=== PATIENT | female | born 1960 | race Caucasian/White ===

== ENCOUNTER 2023-01-06 10:25 | Outpatient (CLI) | payer OTHER, SELFPAY | END 2023-01-06 10:26 | disposition home or self-care (01) | LOC: NFLDREF 01-07 02:43 | PROVIDERS: PCP Internal Medicine; Referring Provider Internal Medicine; Visit Provider Internal Medicine | DX: E78.5 Hyperlipidemia, unspecified (principal); E03.9 Hypothyroidism, unspecified | CPT/HCPCS: 80053; 80061; 84443 ==

== ENCOUNTER 2023-03-17 14:55 | Outpatient (CLI) | payer OTHER, SELFPAY ==
--- NOTE | 2023-03-17 15:00 | MM_ITS ---
Patient: LEANDRA PADILLA Facility:?[facility] Patient ID:?[id number] Site Patient ID:?[id number]. Site :?[id number] Study:?XRay-Breast 2D W/CAD-04/03/2023 8:41:37 AM Ordering Physician:Pablito Jack Final Report: ----ADDENDUM---- PLEASE NOTE THAT THE CORRECT DATE OF SERVICE IS 03/17/2023. CRL:rcd BILATERAL SCREENING MAMMOGRAM WITH COMPUTER-AIDED DETECTION TECHNIQUE: CC and MLO views were obtained. These mammographic images have been obtained using full-field digital technique. These mammographic images were interpreted with the benefit of computer-aided detection. COMPARISON FILM: 09/13/18, 12/18/14, 12/17/11. FINDINGS: There are scattered areas of fibroglandular density IMPRESSION: There is no radiographic evidence for malignancy. ASSESSMENT: BI-RADS Category 1: Negative RECOMMENDATION: Routine screening mammogram in 1 year. A lay language report of this examination will be provided to the patient. Thuan Stratton M.D. Diagnostic/Nuclear Medicine Radiologist [email or web address] D& Transcribed: 2:32 p.m. AMY/Dictated by: Thuan Stratton MD @ 04/03/2023 10:19:00 AM Signed by: Thuan Stratton @ 04/03/2023 3:05:09 PM (Electronic Signature) Signed by:?Thuan Stratton MD @04/07/2023 4:17:53 PM (Electronic Signature)
== END 2023-03-17 14:56 | disposition home or self-care (01) ==
LOC: MAMMO 14:56
PROVIDERS: PCP Internal Medicine; Visit Provider Internal Medicine
DX: Z12.31 Encounter for screening mammogram for malignant neoplasm of breast (principal)
CPT/HCPCS: 77063; 77067

== ENCOUNTER 2023-09-30 10:25 | Outpatient (CLI) | payer OTHER, SELFPAY | END 2023-09-30 10:26 | disposition home or self-care (01) | LOC: NFLDREF 10:28 | PROVIDERS: PCP Internal Medicine; Visit Provider Internal Medicine | DX: E03.9 Hypothyroidism, unspecified (principal) | CPT/HCPCS: 84439; 84443 ==

== ENCOUNTER 2024-11-22 15:27 | Outpatient (CLI) | payer OTHER, SELFPAY | END 2024-11-22 15:28 | disposition home or self-care (01) | LOC: NFLDREF 15:28 | PROVIDERS: PCP Internal Medicine; Visit Provider Internal Medicine | DX: E03.9 Hypothyroidism, unspecified (principal) | CPT/HCPCS: 84443 ==

== ENCOUNTER 2025-04-21 12:49 | Outpatient (CLI) | payer OTHER, SELFPAY ==
--- NOTE | 2025-04-21 13:00 | CRLHL7_ITS ---
For Patients: As a result of the Century Cures Act, medical imaging exams and procedure reports are released immediately into your electronic medical record. You may view this report before your referring provider. If you have questions, please contact your health care provider. INDICATION: Fall. Left ankle injury. TECHNIQUE: Noncontrast CT left ankle. COMPARISON: No prior. FINDINGS: There is an acute fracture of the medial distal tibia. Fracture involves the medial tibial plafond articular surface with 1 millimeter of impaction as noted on coronal image number 19 of series 6. Fracture also extends into the base of the medial malleolus and into the anterior medial distal tibial metaphysis where it is nondisplaced. The posterior malleolus of the distal tibia is intact. 7 millimeter avulsion fracture is noted along the anterior inferior aspect of the fibular tip and lateral aspect of the talus, present along the expected course of the anterior talofibular ligament. There is soft tissue swelling and hemorrhage present laterally. There is no widening of the ankle mortise. Subtalar articulations are maintained. IMPRESSION: 1. Acute fracture of the medial distal tibia involving the medial tibial plafond articular surface where there is 1 mm of impaction, extending to the base of the medial malleolus and into the anteromedial aspect of the tibial metaphysis. 2. 7 mm acute avulsion fracture along the anterior inferior aspect of the fibular tip and lateral aspect of the talus, present along the expected course of the ATFL. 3. No widening of the ankle mortise. 4. Soft tissue swelling and hemorrhage laterally. Please note that all CT scans at this facility use dose modulation, iterative reconstruction, and/or weight-based dosing when appropriate to reduce radiation dose to as low as reasonably achievable. Dictated by Aubrey Alexander MD @ 04/24/2025 9:52:34 AM (Electronically Signed)
== END 2025-04-21 12:50 | disposition home or self-care (01) ==
LOC: CT 12:49
PROVIDERS: PCP Internal Medicine; Visit Provider Internal Medicine
DX: M25.532 Pain in left wrist (principal); W19.XXXA Unspecified fall, initial encounter
CPT/HCPCS: 73700

== ENCOUNTER 2025-08-03 14:40 | Outpatient (CLI) | payer OTHER, SELFPAY | END 2025-08-03 14:41 | disposition home or self-care (01) | LOC: NFLDREF 14:42 | PROVIDERS: PCP Internal Medicine; Visit Provider Internal Medicine | DX: I10 Essential (primary) hypertension (principal); R82.90 Unspecified abnormal findings in urine | CPT/HCPCS: 80053; 87086 ==